=== PATIENT | female | born 1970 | race Asian ===

== ENCOUNTER 2020-03-17 15:01 | Emergency (ER) | payer OTHER ==
[~2020-03-17] VITALS: Ht 152.4 cm; Wt 55.0 kg
--- NOTE | 2020-03-17 15:14 | NUR ---
Note desi in [facility] - 03/17/20 at 1514 by SANDY joint cutter note: Pt to room from [facility].
--- NOTE | 2020-03-17 15:14 | NUR ---
japanese tutor note: Pt to room from [facility].
--- NOTE | 2020-03-17 15:32 | NUR ---
PROVIDER AT BEDSIDE FOR ASSESSMENT
--- NOTE | 2020-03-17 15:52 | NUR ---
PT BIB [facility] AND [facility] WHO STATE PT RECENTLY HAS BEEN HAVING RELATIONSHIP DIFFICULTIES AND THE PT STATES SHE IS HAVING THOUGHTS OF SUICIDE. PER [facility], PT CALLED [employer] STATING "THERE IS PEOPLE IN MY HOUSE". PER [facility], ON ARRIVAL PT WAS FOUND TO HAVE WOUNDS ON HER NECK AND BILATERAL WRISTS. PER [facility], NO OTHER PEOPLE WERE FOUND IN THE HOME. [facility] STATES THEY SPOKE TO PT'S BOYFRIEND WHO STATES PT HAS LOCKED HERSELF IN THE BATHROOM FOR 6 DAYS AND HAS "VERY LITTLE TO EAT". PT STATES SHE HURT HERSELF BECAUSE "I HAVE PEOPLE TRYING TO HURT ME. [employer] SUPP[employer]TERS ARE AFTER ME" ALL PT BELONGINGS HAVE BEEN PLACED IN PT BELONGINGS BAG AND LOCKED IN SECURITY LOCKER. PT IS IN A SUICIDE SECURED WITH PSA AT BEDSIDE.
[2020-03-17] MEDS ORDERED: OLANZAPINE 5 MG TABLET PO SCH (16:00)
[2020-03-17] MEDS ORDERED: PLEASE ENTER ALLERGIES MC SCH (16:00)
[2020-03-17 16:01] LABS: MICROSCOPIC INDICATED
[2020-03-17 16:02] LABS: BASOPHILS % (AUTO) 0 % (0-1); EOSINOPHILS % (AUTO) 0 % (1-7); LYMPHOCYTES % (AUTO) 32 % (22-44); MEAN CORPUSCULAR HEMOGLOBIN 33.2 pg (27.0-34.8); MEAN CORPUSCULAR HGB CONC 34.9 g/dL (32.4-35.8); MEAN PLATELET VOLUME 6.7 fL (7.4-10.4); MONOCYTES % (AUTO) 5 % (2-9); NEUTROPHILS % (AUTO) 63 % (42-75); PLATELET COUNT 485 x10^3/uL (130-400); RED BLOOD COUNT 3.05 x10^6/uL (3.82-5.3); RED CELL DISTRIBUTION WIDTH 13.9 % (9.6-15.2)
[2020-03-17 16:12] LABS: AMPHETAMINE SCREEN, URINE Negative (Negative); BARBITURATE SCREEN, URINE Negative (Negative); BENZODIAZEPINE SCREEN, URINE Negative (Negative); CANNABINOID SCREEN, URINE Positive (Negative); COCAINE SCREEN, URINE Negative (Negative); METHADONE SCREEN, URINE Negative (Negative); OPIATE SCREEN, URINE Negative (Negative)
[2020-03-17 16:14] LABS: ALANINE AMINOTRANSFERASE 24 U/L (12-78); ALBUMIN 3.8 g/dL (3.4-5.0); ANION GAP 13 mmol/L (5-15); CALCIUM 8.8 mg/dL (8.5-10.1); CHLORIDE 97 mmol/L (98-107); CREATININE 0.87 mg/dL (0.55-1.02); SALICYLATE LEVEL 4.6 mg/dL (2.8-20.0)
[2020-03-17 16:20] LABS: MD NO
[2020-03-17 16:24] LABS: ALKALINE PHOSPHATASE 75 U/L (45-117); BILIRUBIN,TOTAL 0.4 mg/dL (0.2-1.0); TOTAL PROTEIN 7.4 g/dL (6.4-8.2)
[2020-03-17] MEDS ORDERED: OLANZAPINE 5 MG TABLET ONE (16:25)
[2020-03-17] MEDS ORDERED: NEOSPORIN OINT. PKT 1 PACKET ONE (16:34)
[2020-03-17] MEDS ORDERED: SODIUM CHLORIDE 1 GM TABLET PO SCH (16:46)
--- NOTE | 2020-03-17 16:56 | NUR ---
PT RESTING ON [facility]. PSA AT BEDSIDE.
--- NOTE | 2020-03-17 18:06 | NUR ---
PT MEDICATED PER APR. PROVIDED WITH 2 CUPS OF BROTH
--- NOTE | 2020-03-17 18:18 | NUR ---
PT MEDCIATION TAKEN DOWN TO PHAMRACIST Addendum: 03/17/20 at 1829 by MICHAEL PT MEDICATION PLACED IN PT BELONGINGS LIST
--- NOTE | 2020-03-17 18:42 | NUR ---
PT PROVIDED WITH SUICIDE SECURED DINNER TRAY
[2020-03-17 19:35] LABS: ANION GAP 15 mmol/L (5-15); CALCIUM 8.6 mg/dL (8.5-10.1); CHLORIDE 104 mmol/L (98-107); CREATININE 0.79 mg/dL (0.55-1.02)
--- NOTE | 2020-03-17 19:55 | NUR ---
PER RADHA SHIPLEY TO ADMINISTER PT HOME MEDS DIRECTED ON LABEL.
--- NOTE | 2020-03-17 20:06 | NUR ---
PACKET FAXED TO [facility], [facility], [facility], AND [facility]; AWAITING CONFIRMATION FAX.
--- NOTE | 2020-03-17 20:47 | NUR ---
CONFIRMATION FAX RECEIVED FROM ALL BUT [facility] WAS BUSY; REFAXING.
--- NOTE | 2020-03-17 20:48 | NUR ---
HOME MEDICATIONS ADMINISTERED PER DR. QUIGLEY. 10MG CYCLOBENZAPRINE, AND 600MG GABAPENTIN. PT RESTING ON GURNEY WATCHING TV. PSA AT BEDSIDE
--- NOTE | 2020-03-17 21:06 | NUR ---
Elsa accepts at [facility]. Dr. Devries accepting doctor. Rip MARIALUISA.
[2020-03-17 21:13] VITALS: BP 118/82
--- NOTE | 2020-03-17 21:14 | NUR ---
REPORT GIVEN TO DEEDEE AT [facility]
--- NOTE | 2020-03-17 21:21 | NUR ---
[facility] transport set up for transport to [facility]. [facility] ETA at this time is 2200. No need for MTM as patient has [employer] medicare advantage.
== END 2020-03-17 21:40 ==
LOC: ED 15:22
DX: R45.851 Suicidal ideations (principal); F32.9 Major depressive disorder, single episode, unspecified; E87.1 Hypo-osmolality and hyponatremia
CPT/HCPCS: 36415; 80048; 80053; 80299; 80307; 80320; 80329; 81001; 84443; 84703; 85025; 99283; 99285; G0480

== ENCOUNTER 2020-04-08 12:03 | Emergency (ER) | payer OTHER ==
[~2020-04-08] VITALS: Ht 152.4 cm; Wt 61.0 kg
[2020-04-08 12:12] VITALS: BP 128/92
--- NOTE | 2020-04-08 12:32 | NUR ---
SW at bedside.
--- NOTE | 2020-04-08 12:57 | NUR ---
Gianni, psych RN ACCESS at bedside.
--- NOTE | 2020-04-08 13:00 | NUR ---
2 bags, labeled placed in psych-security locker.
[2020-04-08] MEDS ORDERED: LORazepam 0.5MG TABLET PO ONE (13:30)
[2020-04-08] MEDS ORDERED: PALIPERIDONE 3 MG TAB.ER.24 PO SCH (13:30)
[2020-04-08 13:36] LABS: ANION GAP 9 mmol/L (5-15); CALCIUM 8.7 mg/dL (8.5-10.1); CHLORIDE 107 mmol/L (98-107); CREATININE 0.65 mg/dL (0.55-1.02); SALICYLATE LEVEL 3.6 mg/dL (2.8-20.0)
[2020-04-08 13:40] LABS: BASOPHILS % (AUTO) 1 % (0-1); EOSINOPHILS % (AUTO) 2 % (1-7); LYMPHOCYTES % (AUTO) 39 % (22-44); MEAN CORPUSCULAR HEMOGLOBIN 33.6 pg (27.0-34.8); MEAN CORPUSCULAR HGB CONC 33.8 g/dL (32.4-35.8); MEAN PLATELET VOLUME 6.6 fL (7.4-10.4); MONOCYTES % (AUTO) 5 % (2-9); NEUTROPHILS % (AUTO) 54 % (42-75); PLATELET COUNT 514 x10^3/uL (130-400); RED BLOOD COUNT 3.64 x10^6/uL (3.82-5.3); RED CELL DISTRIBUTION WIDTH 13.9 % (9.6-15.2)
[2020-04-08 13:41] LABS: MD NO
[2020-04-08 13:47] LABS: AMPHETAMINE SCREEN, URINE Negative (Negative); BARBITURATE SCREEN, URINE Negative (Negative); BENZODIAZEPINE SCREEN, URINE Negative (Negative); CANNABINOID SCREEN, URINE Positive (Negative); COCAINE SCREEN, URINE Negative (Negative); OPIATE SCREEN, URINE Negative (Negative)
[2020-04-08 13:48] LABS: METHADONE SCREEN, URINE Negative (Negative)
--- NOTE | 2020-04-08 14:00 | NUR ---
BREAK RN: SBAR RPT REC'D. SITTER AT DOORWAY WITH PT IN VIEW. ROOM SECURE, PT SLEEPING, RESP EVEN NON-LABORED.
--- NOTE | 2020-04-08 14:33 | NUR ---
BREAK RN: MOISE RPT TO DAVID LEGER
--- NOTE | 2020-04-08 15:39 | NUR ---
PACKET FAXED TO [facility], [facility] AND [facility]
--- NOTE | 2020-04-08 16:46 | NUR ---
Nurse to nurse report to [facility].
--- NOTE | 2020-04-08 19:00 | NUR ---
PATIENT RESTING IN BED IN NAD. CALL QUEEN IN REACH. SAFETY MEAL TRAY PROVIDED TO PATIENT. 1:1 IN VIEW OF PATIENT. SAFETY MAINTAINED
--- NOTE | 2020-04-08 19:42 | NUR ---
[facility] TRANSPORTING PATIENT TO [facility]. ALL PERSONAL BELONGINGS SENT WITH PATIENT Addendum: 04/08/20 at 1945 by NADIA AMBULATED WITH STEADY GAIT. COOPERATIVE
== END 2020-04-08 19:47 ==
LOC: ED 17:07
DX: F23 Brief psychotic disorder (principal); F22 Delusional disorders; F17.200 Nicotine dependence, unspecified, uncomplicated; Z91.14 Patient's other noncompliance with medication regimen
CPT/HCPCS: 36415; 80048; 80299; 80307; 80320; 80329; 82040; 85025; 99283; 99284; 99285; G0480